=== PATIENT | female | born 1965 | race Caucasian/White ===

== ENCOUNTER 2023-01-09 13:47 | Emergency (ER) | payer BC ==
[2023-01-09] MEDS ORDERED: Zofran 4 MG/2 ML VIAL IV ONE (14:19)
[2023-01-09] MEDS ORDERED: Sodium Chloride 0.9% 1000 ML 1,000 ML IV STA (14:19)
--- NOTE | 2023-01-09 14:26 | ERPHSYRPT ---
- History of Present Illness Historian: patient Exam Limitations: no limitations Patient Subjective Stated Complaint: Pt states "I was put on 2000 mg keflex a day for an infection in my toe and I have had horrible diarrhea for the past 4 days. I have taken immodium and nothing seems to help." Triage Nursing Assessment: Pt presented alert and oriented X 3, skin pwd. Pt a mbulates with an upright steady gait, able to speak in clear full sentences. PT resting comfortably on the bed. Physician History: 57 yo WF w diarrhea since 01/03 after finishing Keflex for an infected ingrown toe nail. She had mild nausea/vomiting yesterday and currently has diffuse abdominal cramping rated 6/10 on scale. Pt had some mild hematochezia but denies melena/hematemesis/cough/coryza/fever. Timing/Duration: other (01/03) Quality: cramping Abdominal Pain Onset Location: generalized abdomen Pain Radiation: no radiation Severity of Pain-Max: severe Severity of Pain-Current: moderate Modifying Factors: Improves With: nothing Associated Symptoms: denies symptoms, nausea, vomiting Previous symptoms: no prior history Allergies/Adverse Reactions: No Known Drug Allergies Allergy (Verified 01/09/23 14:03) Home Medications: Carvedilol [Coreg] 25 mg PO DAILY 01/09/23 [History] Cephalexin Mh 500 mg [Keflex 500 mg] 500 mg PO Q6H 01/09/23 [History] Escitalopram Oxalate [Lexapro] 20 mg PO DAILY 01/09/23 [History] Hx Tetanus, Diphtheria Vaccination/Date Given: No Hx Influenza Vaccination/Date Given: No Hx Pneumococcal Vaccination/Date Given: No Immunizations Up to Date: Yes Travel Risk - International Travel Have you traveled outside of the country in past 3 weeks: No - Coronavirus Screening Are you exhibiting any of the following symptoms?: Yes Symptoms: Vomiting/Diarrhea Close contact with a COVID-19 positive Pt in past 14-21 Days: No - Vaccine Status Have you recieved a Covid-19 vaccination: Yes [employer]: Moderna - Vaccination Dates Date of 2cond Vaccination (if applicable): 2020 - Review of Systems Constitutional: No Symptoms Eyes: No Symptoms Ears, Nose, & Throat: No Symptoms Respiratory: No Symptoms Cardiac: No Symptoms Abdominal/Gastrointestinal: No Symptoms, Abdominal Pain, Nausea, Vomiting, Diarrhea Genitourinary Symptoms: No Symptoms Musculoskeletal: No Symptoms Skin: No Symptoms Neurological: No Symptoms Psychological: No Symptoms Endocrine: No Symptoms Hematologic/Lymphatic: No Symptoms Immunological/Allergic: No Symptoms - Past Medical History Pertinent Past Medical History: Yes Cardiac History: Hypertension Psycho-Social History: Depression - Past Surgical History Past Surgical History: Yes Other Surgical History: hysterectomy. esophageal. toe - Social History Smoking Status: Never smoker Exposure to second hand smoke: Yes Drug Use: none Patient Lives Alone: No - Nursing Vital Signs Nursing Vital Signs: Initial Vital Signs Temperature 98.5 F 01/09/23 13:52 Pulse Rate 93 H 01/09/23 13:52 Respiratory Rate 20 01/09/23 13:52 Blood Pressure 133/76 01/09/23 13:52 O2 Sat by Pulse Oximetry 99 01/09/23 13:52 Pain Scale Pain Intensity 4 WNL - Physical Exam General Appearance: no apparent distress Eye Exam: PERRL/EOMI, eyes nml inspection Ears, Nose, Throat Exam: normal ENT inspection, TMs normal, dry mucous membranes Neck Exam: normal inspection, non-tender, supple, full range of motion, No meningismus, No mass, No Brudzinski, No Kernig's, No carotid bruit Respiratory Exam: normal breath sounds, lungs clear, airway intact, No respiratory distress Cardiovascular Exam: regular rate/rhythm, normal heart sounds, normal peripheral pulses, capillary refill <2 sec, No murmur Gastrointestinal/Abdomen Exam: soft, normal bowel sounds, tenderness (Mild diffuse wo guarding or rebound) Back Exam: normal inspection, normal range of motion, No CVA tenderness, No vertebral tenderness Extremity Exam: normal inspection, normal range of motion Neurologic Exam: alert, oriented x 3, cooperative, surveyor's assistant II-XII nml as tested, normal mood/affect, nml cerebellar function, nml station & gait, sensation nml Skin Exam: normal color, warm, dry Lymphatic Exam: No adenopathy SpO2 Interpretation: normal SpO2: 99 O2 Delivery: Room Air - Course Nursing assessment & vital signs reviewed: Yes - CT Exams Abdomen/Pelvis CT Interpretation: Discussed w/radiologist (Colitis/Small hiatal hernia) Ordered Tests: Active Orders 24 hr Category Date Time Status IV Insertion STAT Care 01/09/23 14:06 Active ABDOMEN AND PELVIS W/0 CONTRAS [CT] Stat Exams 01/09/23 14:52 Completed CBC W DIFF Stat Lab 01/09/23 14:29 Completed CMP Stat Lab 01/09/23 14:29 Completed Lactic Acid Stat Lab 01/09/23 14:20 Completed Medication Summary Discontinued Medications Generic Name Dose Route Start Last Admin Trade Name Leninq PRN Reason Stop Dose Admin Fentanyl Citrate 50 mcg 01/09/23 15:29 01/09/23 15:34 Fentanyl Citrate 100 Mcg/2 Ml* Vial IV 01/09/23 15:30 50 mcg STAT ONE Administration Fentanyl Citrate Confirm 01/09/23 15:33 Fentanyl Citrate 100 Mcg/2 Ml* Vial Administered 01/09/23 15:34 Dose 100 mcg .ROUTE .STK-MED ONE Sodium Chloride 1,000 mls @ 999 mls/hr 01/09/23 14:19 01/09/23 15:47 Sodium Chloride 0.9% 1000 Ml IV 01/09/23 15:19 Infused .Q1H1M STA Infusion Sodium Chloride Confirm 01/09/23 14:42 Sodium Chloride 0.9% 1000 Ml Administered 01/09/23 14:43 Dose 1,000 mls @ ud .ROUTE .STK-MED ONE Ondansetron HCl 4 mg 01/09/23 14:19 01/09/23 14:43 Ondansetron Hcl 4 Mg/2 Ml Vial IV 01/09/23 14:20 4 mg STAT ONE Administration Ondansetron HCl Confirm 01/09/23 14:42 Ondansetron Hcl 4 Mg/2 Ml Vial Administered 01/09/23 14:43 Dose 4 mg .ROUTE .STK-MED ONE Lab/Rad Data: Laboratory Result Diagrams 01/09/23 14:29 01/09/23 14:29 Laboratory Results 01/09/23 01/09/23 01/09/23 Range/Units 15:00 14:35 14:29 WBC (4.0-10.5) x10^3/uL RBC (4.1-5.4) x10^6/uL Hgb (12.0-16.0) g/dL Hct (35-47) % MCV (78-100) fL MCH (26-32) pg MCHC (32-36) g/dL RDW (11.5-14.0) % Plt Count (150-450) x10^3/uL MPV (7.5-11.0) fL Gran % (36.0-66.0) % Immature Gran % (Auto) (0.00-0.4) % Nucleat RBC Rel Count (0.00-0.1) % Eos # (Auto) (0-0.5) x10^3/uL Immature Gran # (Auto) (0.00-0.03) x10^3u/L Absolute Lymphs (auto) (1.0-4.6) x10^3/uL Absolute Monos (auto) (0.0-1.3) x10^3/uL Absolute Nucleated RBC (0.00-0.01) x10^3u/L Lymphocytes % (24.0-44.0) % Monocytes % (0.0-12.0) % Eosinophils % (0.00-5.0) % Basophils % (0.0-0.4) % Absolute Granulocytes (1.4-6.9) x10^3/uL Basophils # (0-0.4) x10^3/uL Sodium 138 (137-145) mmol/L Potassium 3.9 (3.5-5.1) mmol/L Chloride 99 (98-107) mmol/L Carbon Dioxide 27 (22-30) mmol/L Anion Gap 15.8 H (5-15) MEQ/L BUN 15 (7-17) mg/dL Creatinine 0.93 (0.52-1.04) mg/dL Estimated GFR > 60.0 ML/MIN Glucose 155 H (74-106) mg/dL Lactic Acid (0.4-2.0) Calcium 8.9 (8.4-10.2) mg/dL Total Bilirubin 1.30 (0.2-1.3) mg/dL AST 42 H (14-36) U/L ALT 40 H (0-35) U/L Alkaline Phosphatase 68 (38-126) U/L Serum Total Protein 7.5 (6.3-8.2) g/dL Albumin 3.9 (3.5-5.0) g/dL C. difficile Screen POSITIVE (NEGATIVE) C.difficile 027-NAP1-B1 PRESUMPTIVE POSITIVE (NEGATIVE) Influenza Type A Ag NEGATIVE (NEGATIVE) Influenza Type B Ag NEGATIVE (NEGATIVE) RSV (PCR) NEGATIVE (NEGATIVE) SARS-CoV-2 (PCR) NEGATIVE (NEGATIVE) 01/09/23 01/09/23 Range/Units 14:29 14:20 WBC 12.3 H (4.0-10.5) x10^3/uL RBC 4.69 (4.1-5.4) x10^6/uL Hgb 13.1 (12.0-16.0) g/dL Hct 41.4 (35-47) % MCV 88.3 (78-100) fL MCH 27.9 (26-32) pg MCHC 31.6 L (32-36) g/dL RDW 12.0 (11.5-14.0) % Plt Count 325 (150-450) x10^3/uL MPV 9.3 (7.5-11.0) fL Gran % 81.2 H (36.0-66.0) % Immature Gran % (Auto) 0.2 (0.00-0.4) % Nucleat RBC Rel Count 0.0 (0.00-0.1) % Eos # (Auto) 0.10 (0-0.5) x10^3/uL Immature Gran # (Auto) 0.02 (0.00-0.03) x10^3u/L Absolute Lymphs (auto) 1.08 (1.0-4.6) x10^3/uL Absolute Monos (auto) 1.07 (0.0-1.3) x10^3/uL Absolute Nucleated RBC 0.00 (0.00-0.01) x10^3u/L Lymphocytes % 8.8 L (24.0-44.0) % Monocytes % 8.7 (0.0-12.0) % Eosinophils % 0.8 (0.00-5.0) % Basophils % 0.3 (0.0-0.4) % Absolute Granulocytes 10.01 H (1.4-6.9) x10^3/uL Basophils # 0.04 (0-0.4) x10^3/uL Sodium (137-145) mmol/L Potassium (3.5-5.1) mmol/L Chloride (98-107) mmol/L Carbon Dioxide (22-30) mmol/L Anion Gap (5-15) MEQ/L BUN (7-17) mg/dL Creatinine (0.52-1.04) mg/dL Estimated GFR ML/MIN Glucose (74-106) mg/dL Lactic Acid 2.7 H (0.4-2.0) Calcium (8.4-10.2) mg/dL Total Bilirubin (0.2-1.3) mg/dL AST (14-36) U/L ALT (0-35) U/L Alkaline Phosphatase (38-126) U/L Serum Total Protein (6.3-8.2) g/dL Albumin (3.5-5.0) g/dL C. difficile Screen (NEGATIVE) C.difficile 027-NAP1-B1 (NEGATIVE) Influenza Type A Ag (NEGATIVE) Influenza Type B Ag (NEGATIVE) RSV (PCR) (NEGATIVE) SARS-CoV-2 (PCR) (NEGATIVE) - Progress Progress: improved Progress Note: 01/09/23 16:22 Nursing note and vital signs reviewed No food or housing insecurities noted All lab results and CT results reviewed and shared w pt/ Additional history per 1L NS bolus/4mg IV Zofran/50mcg IV Fentanyl w improvement 01/09/23 16:23 Counseled pt/family regarding: lab results, diagnosis, need for follow-up, rad results Medical Desision Making - Independent Historian Additional History obtained from: Spouse - Diagnostic Testing Diagnostic test were ordered, analyzed, and reviewed by me: Yes Radiological Interpretation: Discussed w/ radiologist - Risk of complications Low Risk: Low risk of morbidity from additional dx testing or treatment - Departure Departure Disposition: Home Clinical Impression: Clostridium difficile colitis Condition: Stable Critical Care Time: No Referrals: MAYA CASILLAS NP [Primary Care Provider] - Follow up/PCP as directed Instructions: Antibiotic-Associated Diarrhea (C. difficile Infection) Additional Instructions: Fluids Start Flagyl(No alcohol while taking Flagyl) Bentyl as needed for pain Follow up with your family MD in 1-2 days Return to ER for increasing pain or temperature greater than 100.5 Prescriptions: Dicyclomine HCl 20 mg [Bentyl 20 mg] 20 mg PO Q6HPRN PRN #20 tablet PRN Reason: Pain Metronidazole 500 mg [Flagyl 500 MG] 500 mg PO TID #30 tablet
[2023-01-09 14:31] LABS: Absolute Neutrophil Ct (ANC) 10.01 x10^3/uL (1.4-6.9); BASOPHIL % 0.3 % (0.0-0.4); Basophil (Absolute #) 0.04 x10^3/uL (0-0.4); Eosinophil % 0.8 % (0.00-5.0); Hematocrit 41.4 % (35-47); Hemoglobin 13.1 g/dL (12.0-16.0); IMMATURE GRAN # 0.02 x10^3u/L (0.00-0.03); IMMATURE GRAN % 0.2 % (0.00-0.4); Lymphocyte (Absolute #) 1.08 x10^3/uL (1.0-4.6); Lymphocytes % 8.8 % (24.0-44.0); Mean Cell Volume 88.3 fL (78-100); Mean Corpuscular Hemoglobin 27.9 pg (26-32); Mean Corpuscular Hgb Concent. 31.6 g/dL (32-36); Mean Platelet Volume 9.3 fL (7.5-11.0); Monocyte (Absolute #) 1.07 x10^3/uL (0.0-1.3); Monocytes % 8.7 % (0.0-12.0); Neutrophil % 81.2 % (36.0-66.0); Platelet Count 325 x10^3/uL (150-450); Red Blood Count 4.69 x10^6/uL (4.1-5.4); White Blood Count 12.3 x10^3/uL (4.0-10.5)
[2023-01-09] MEDS ORDERED: Zofran 4 MG/2 ML VIAL ONE (14:42)
[2023-01-09] MEDS ORDERED: Sodium Chloride 0.9% 1000 ML 1,000 ML ONE (14:42)
[2023-01-09 14:43] LABS: ALBUMIN 3.9 g/dL (3.5-5.0); ALKALINE PHOSPHATASE 68 U/L (38-126); ANION GAP 15.8 MEQ/L (5-15); BLOOD UREA NITROGEN 15 mg/dL (7-17); CHLORIDE 99 mmol/L (98-107); Calcium 8.9 mg/dL (8.4-10.2); Carbon Dioxide 27 mmol/L (22-30); Creatinine 1 0.93 mg/dL (0.52-1.04); EST GLOMERULAR FILTRATION RATE > 60.0 ML/MIN; Glucose 155 mg/dL (74-106); Potassium 3.9 mmol/L (3.5-5.1); SGOT/AST 42 U/L (14-36); SGPT/ALT 40 U/L (0-35); SODIUM 138 mmol/L (137-145); Total Protein 7.5 g/dL (6.3-8.2)
[2023-01-09 15:12] LABS: INFLUENZA A NEGATIVE (NEGATIVE); INFLUENZA B NEGATIVE (NEGATIVE); RESPIRATORY SYNCTIAL VIRUS NEGATIVE (NEGATIVE); SARS-CoV-2 Xpert Express NEGATIVE (NEGATIVE)
--- NOTE | 2023-01-09 15:26 | XRAY ---
Indication: Abdomen pain and diarrhea. Multiple contiguous axial images obtained through the abdomen and pelvis without contrast. Comparison: None Lung bases emesis minimal dependent atelectasis. Heart not enlarged. Small hiatal hernia. Visualized esophagus is mildly fluid distended presumed from gastroesophageal reflux. Noncontrasted stomach and bowel loops appear nonobstructed with normal appendix. Colon demonstrates moderate diffuse circumferential wall thickening with pericolonic stranding favoring colitis. Tiny free fluid right colic gutter but no walled off fluid collection or free air. Remaining liver, gallbladder, pancreas, spleen, adrenal glands, kidneys, ureters, and bladder are unremarkable for noncontrast exam. Mild scattered aortoiliac calcifications without AAA. Osseous structures intact with mild degenerative changes throughout the lumbar spine, bilateral L5 spondylolysis with 8-9 mm anterolisthesis, and mild levorotoscoliosis centered at L2-L3. Impression: 1. Diffuse colitis. No complications. 2. Small hiatal hernia with GERD. 3. Chronic findings including arteriosclerotic disease and chronic bony findings.
[2023-01-09] MEDS ORDERED: SUBLIMAZE 100 MCG/2 ML IV ONE (15:29)
[2023-01-09] MEDS ORDERED: SUBLIMAZE 100 MCG/2 ML ONE (15:33)
[2023-01-09 15:46] LABS: 027 TOX PROD PRESUMPTIVE POSITIVE (NEGATIVE)
[2023-01-09 16:08] VITALS: BP 140/67; PULSE 103
[2023-01-09 16:11] LABS: TOXIGENIC C. DIFF ORG POSITIVE (NEGATIVE)
[2023-01-09 16:18] VITALS: O2SAT 99
== END 2023-01-09 16:30 | disposition home or self-care (01) ==
LOC: ED 13:47
DX: A04.72 Enterocolitis due to Clostridium difficile, not specified as recurrent (principal); R11.2 Nausea with vomiting, unspecified; R10.9 Unspecified abdominal pain; I10 Essential (primary) hypertension; Z79.899 Other long term (current) drug therapy
CPT/HCPCS: 0241U; 36000; 36415; 74176; 80053; 83605; 85025; 87493; 96360; 96374; 99284; J2405; J3010